=== PATIENT | female | born 1990 | race Caucasian/White ===

== ENCOUNTER 2017-07-12 15:50 | Emergency (ER) | payer OTHER ==
[~2017-07-12] VITALS: Ht 175.3 cm; Wt 96.2 kg
[2017-07-12 16:26] VITALS: BP 138/58
--- NOTE | 2017-07-12 19:20 | NUR ---
PATIENT LEFT WITHOUT BEING SEEN BY DR. STILL. NO FURTHER CARE PROVIDED FOR PATIENT.
== END 2017-07-12 19:20 | disposition left against medical advice (07) ==
LOC: MED 15:50
DX: R20.0 Anesthesia of skin (principal); Z53.21 Procedure and treatment not carried out due to patient leaving prior to being seen by health care provider